=== PATIENT | female | born 1960 | race Hispanic/Latino ===

== ENCOUNTER 2021-09-18 17:22 | Emergency (ER) | payer MEDICARE, OTHER ==
[~2021-09-18] VITALS: Ht 162.6 cm; Wt 72.2 kg
[2021-09-18] MEDS ORDERED: AZITHROMYCIN250 MG PO (21:24)
== END 2021-09-18 21:35 | disposition home or self-care (01) ==
LOC: FSED 17:40
DX: J20.9 Acute bronchitis, unspecified (principal); B34.9 Viral infection, unspecified; M79.7 Fibromyalgia
CPT/HCPCS: 71046; 87400; 99283

== ENCOUNTER 2022-07-30 16:30 | Emergency (ER) | payer MEDICARE, OTHER ==
[~2022-07-30] VITALS: Ht 165.1 cm; Wt 75.7 kg
[~2022-07-30 16:30] MED LIST: AZITHROMYCIN250 MG PO
[2022-07-30] MEDS ORDERED: ACETAMINOPHEN 325 MG TAB PO ONE (17:30)
[2022-07-30] MEDS ORDERED: IBUPROFEN200 MG PO (18:13)
[2022-07-30] MEDS ORDERED: TYLENOL325 MG PO (18:13)
== END 2022-07-30 18:27 | disposition home or self-care (01) ==
LOC: FSED 16:38
DX: S30.1XXA Contusion of abdominal wall, initial encounter (principal); W01.0XXA Fall on same level from slipping, tripping and stumbling without subsequent striking against object, initial encounter; Y93.01 Activity, walking, marching and hiking; Y92.89 Other specified places as the place of occurrence of the external cause; M79.7 Fibromyalgia
CPT/HCPCS: 74176; 99283